=== PATIENT | male | born 1960 | race Caucasian/White ===

== ENCOUNTER 2018-02-14 10:37 | Emergency (ER) | payer OTHER ==
[2018-02-14 10:50] VITALS: BP 122/68
[2018-02-14] MEDS ORDERED: MOTRIN PO ONE (11:10)
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
--- NOTE | 2018-02-14 12:51 | XRay Report ---
LUMBOSACRAL SPINE, 3 VIEWS: History: Back pain Findings: The vertebral bodies, disk spaces and posterior elements are intact. No compression deformity or malalignment. Moderate degenerative disc disease at L4-5. Mild diffuse facet arthropathy. The SI joints are symmetric and unremarkable. Impression: Lumbar spondylosis. No evidence for acute injury to the lumbar spine.
--- NOTE | 2018-02-14 12:52 | XRay Report ---
CERVICAL SPINE, 3 views: History: Neck pain. Findings: The vertebral bodies, disk spaces, posterior elements and prevertebral soft tissues are intact. The dens is intact. No acute fracture or malalignment is identified. Moderate degenerative disc disease with anterior spurring is identified at C6-7. Mild disc space narrowing at C5-6. Impression: Cervical spondylosis. No evidence for acute injury to the cervical spine.
== END 2018-02-14 13:05 | disposition home or self-care (01) ==
LOC: ED 10:37
DX: S13.4XXA Sprain of ligaments of cervical spine, initial encounter (principal); S39.012A Strain of muscle, fascia and tendon of lower back, initial encounter; Z95.0 Presence of cardiac pacemaker; V89.2XXA Person injured in unspecified motor-vehicle accident, traffic, initial encounter; Y93.89 Activity, other specified; Y92.89 Other specified places as the place of occurrence of the external cause; Y99.8 Other external cause status
CPT/HCPCS: 72040; 72100; 99283